=== PATIENT | male | born 1970 | race Hispanic/Latino ===

== ENCOUNTER 2022-05-19 18:32 | Emergency (ER) | payer BC ==
[~2022-05-19] VITALS: Ht 170.2 cm; Wt 88.0 kg
[2022-05-19] VITALS (11 sets, daily range): BP systolic 116–135; BP diastolic 73–105
[~2022-05-19 18:32] MED LIST: CLARITIN10 M2 PO; LORTAB5 PO; OXYCODONE5 M1 OR; PERCOCET1 TA4 PO; SOMA350 MG PO
[2022-05-19] MEDS ORDERED: LORTAB 1010 MG PO (21:40)
== END 2022-05-19 22:32 | disposition home or self-care (01) | DRG 563 ==
LOC: ED 18:32
PROC: 2W3DX1Z Immobilization of Left Lower Arm using Splint (ICD-10-PCS; principal; 2022-05-19)
DX: S52.502A Unspecified fracture of the lower end of left radius, initial encounter for closed fracture (principal); S52.612A Displaced fracture of left ulna styloid process, initial encounter for closed fracture; W17.89XA Other fall from one level to another, initial encounter